=== PATIENT | female | born 1995 | race Two or more races ===

== ENCOUNTER 2024-12-06 17:45 | Emergency (ER) | payer OTHER ==
[~2024-12-06] VITALS: Ht 167.6 cm; Wt 56.7 kg
[2024-12-06 19:26] LABS: PH,URINE 5.5 (5.0-8.0); URINE APPEARANCE Clear; URINE BILIRRUBIN Negative (NEGATIVE); URINE BLOOD NHT; URINE COLOR Dark Yellow; URINE GLUCOSE Negative (NEGATIVE); URINE LEUKOCYTE Negative; URINE NITRATE Negative; URINE PROTEIN Negative (NEGATIVE); URINE UROBILINOGEN 0.2 E.U./dl
[2024-12-06 19:26] LABS: HEMATOCRIT 35.1 % (36.0-45.00); HEMOGLOBIN 12.2 g/dL (12.0-15.00); MEAN CELL VOLUME 82.1 fL (80.00-100.00); MEAN CORPUSCULAR HEMOGLOBIN 28.6 pg (27.00-32.0); MEAN CORPUSCULAR HGB CONC 34.8 g/dl (32.0-36.0); PLATELET COUNT 235 K/uL (150-450); RED BLOOD COUNT 4.27 M/uL (4.00-6.00); RED CELL DISTRIBUTION WIDTH 13.6 % (11.5-14.5)
[2024-12-06 19:29] LABS: URINE BACTERIA 100.3 uL (0.0-1933); URINE EPITHELIAL CELLS 13.9 uL (0.0-38.8); URINE RBC 15.7 uL (0.0-20.8); URINE WBC 16.4 uL (0.0-23.2)
[2024-12-06 19:32] LABS: URINE CAST 0.14 uL (0.0-1.40); URINE KETONE 40 (NEGATIVE)
== END 2024-12-06 20:45 | disposition home or self-care (01) ==
LOC: ER 17:47
PROVIDERS: Emergency Medicine
DX: O20.8 Other hemorrhage in early pregnancy (principal); Z3A.13 13 weeks gestation of pregnancy

== ENCOUNTER 2025-04-27 17:56 | Inpatient (IN) | payer OTHER ==
[~2025-04-27] VITALS: Ht 152.4 cm; Wt 63.5 kg
[2025-04-27 17:14] VITALS: BP 162/100
[~2025-04-27 17:56] MED LIST changes: -IBUPROFEN800 MG PO; -LABETALOL HCL200 MG PO
[2025-04-27] MEDS ORDERED: ACETAMINOPHEN 500 MG GEL..CAP PO ONE (18:07)
[2025-04-27] MEDS ORDERED: LABETALOL HCL 100 MG TABLET PO ONE (18:07)
[2025-04-27] MEDS ORDERED: BETAMETHASONE ACETATE,SOD PHOS 30 MG/5 ML ML ONE (18:08)
[2025-04-27] MEDS ORDERED: MAGNESIUM SULFATE IN WATER 4 GM/100 ML PIGGYBACK IV ONE (18:08)
[2025-04-27] MEDS ORDERED: MAGNESIUM SULFATE IN WATER 0.04 GM/ML IV.SOLN IV ONE (18:09)
[2025-04-27] MEDS ORDERED: MAGNESIUM SULFATE IN WATER 100 ML IV NR (18:45)
[2025-04-27] MEDS ORDERED: MAGNESIUM SULFATE IN WATER 0.04 GM/ML IV.SOLN IV SCH (18:45)
[2025-04-27] MEDS ORDERED: ACETAMINOPHEN 500 MG GEL..CAP PO SCH (18:45)
[2025-04-27] MEDS ORDERED: RINGERS SOLUTION,LACTATED 1,000 ML IV SCH (18:45)
[2025-04-27] MEDS ORDERED: LABETALOL HCL 200 MG TABLET PO SCH (18:45)
[2025-04-27 19:49] LABS: URINE APPEARANCE Cloudy; URINE BILIRRUBIN Small (NEGATIVE); URINE BLOOD Moderate; URINE COLOR Dark Yellow; URINE GLUCOSE Negative (NEGATIVE); URINE KETONE Negative (NEGATIVE); URINE LEUKOCYTE Trace; URINE NITRATE Negative; URINE PROTEIN >=1000 (NEGATIVE); URINE UROBILINOGEN 0.2 E.U./dl
[2025-04-27 19:54] LABS: URINE BACTERIA 3734.4 uL (0.0-1933); URINE EPITHELIAL CELLS 82.1 uL (0.0-38.8); URINE RBC 16.6 uL (0.0-20.8); URINE WBC 111.7 uL (0.0-23.2)
[2025-04-27 20:00] VITALS: BP 160/102
[2025-04-27 20:15] LABS: URINE CAST > 21.83 uL (0.0-1.40)
[2025-04-27 20:18] LABS: FIBRINOGEN 441 mg/dL (187.0-446.0); INR < 0.93; PARTIAL THROMBOPLASTIN TIME 27.3 SECONDS (22.0-34.0)
[2025-04-27 20:26] LABS: ALBUMIN 2.8 gm/dL (3.4-5.0); BILIRUBIN TOTAL 0.5 mg/dL (0.3-1.2); CALCIUM 8.4 mg/dL (8.5-10.1); GFR 64.67; GLOBULINA 3.8 G/DL (2.4-3.5); POTASSIUM 3.97 mEq/L (3.5-5.1); TOTAL PROTEIN 6.6 gm/dL (6.4-8.2)
[2025-04-27] MEDS ORDERED: BETAMETHASONE ACETATE,SOD PHOS 30 MG/5 ML ML IM ONE (20:30)
[2025-04-27 20:50] LABS: BASO % 0.9 % (0.1-1.2); EOS # 0.01 (0.04-0.54); EOS % 0.1 % (0.7-7.0); HEMATOCRIT 37.1 % (34.1-44.9); HEMOGLOBIN 12.8 g/dL (11.2-15.7); LYMPH # 2.45 (1.18-3.74); LYMPH % 30.9 % (19.3-53.1); MONO # 0.33 (0.24-0.82); MONO % 4.2 % (4.7-12.5); NEUT # 5.02 (1.56-6.13); NEUT % 63.3 % (34.0-71.1); RED BLOOD COUNT 4.42 M/uL (3.93-5.22); RED CELL DISTRIBUTION WIDTH 12.8 % (11.6-14.4)
[2025-04-27 20:58] LABS: PLATELET COUNT 97 K/uL (163-369)
[2025-04-27 23:26] VITALS: BP 126/76; BP 170/120; O2SAT 98
[2025-04-27] MEDS ORDERED: hydrALAZINE HCL 20 MG VIAL ONE (23:29)
[2025-04-27] MEDS ORDERED: hydrALAZINE HCL 20 MG VIAL IV ONE (23:30)
[2025-04-27 23:55] VITALS: BP 170/120
[2025-04-28] MEDS ORDERED: CEFAZOLIN SODIUM 1,000 MG VIAL ONE (00:09)
[2025-04-28] MEDS ORDERED: CEFAZOLIN SODIUM 1,000 MG VIAL IV SCH ×2 (00:15→02:00)
[2025-04-28] MEDS ORDERED: ERYTHROMYCIN BASE OPHT 1GM EACH TUBE OP ONE (00:19)
[2025-04-28] MEDS ORDERED: OXYTOCIN 10 UNITS/ML VIAL ONE (00:19)
[2025-04-28] MEDS ORDERED: MORPHINE SULFATE 4 MG/ML CARTRIDGE IV PRN (02:00)
[2025-04-28] MEDS ORDERED: RINGERS SOLUTION,LACTATED 100 ML IV SCH (02:00)
[2025-04-28] MEDS ORDERED: MAGNESIUM SULFATE IN WATER 500 ML IV SCH (02:15)
[2025-04-28] MEDS ORDERED: MORPHINE SULFATE 4 MG/ML VIAL IV ONE ×2 (03:00→03:30)
[2025-04-28 04:36] VITALS: BP 129/82
[2025-04-28 04:54] VITALS: BP 148/94
[2025-04-28] MEDS ORDERED: LABETALOL HCL 200 MG TABLET PO SCH (05:00)
[2025-04-28 06:32] VITALS: BP 140/100; O2SAT 97
[2025-04-28 09:41] LABS: BASO % 0.2 % (0.1-1.2); HEMATOCRIT 33.1 % (34.1-44.9); HEMOGLOBIN 11.3 g/dL (11.2-15.7); LYMPH # 1.95 (1.18-3.74); LYMPH % 12.4 % (19.3-53.1); MONO # 0.91 (0.24-0.82); MONO % 5.8 % (4.7-12.5); NEUT # 12.44 (1.56-6.13); NEUT % 79.4 % (34.0-71.1); RED CELL DISTRIBUTION WIDTH 13.2 % (11.6-14.4)
[2025-04-28 09:46] LABS: PLATELET COUNT 120 K/uL (163-369)
[2025-04-28 10:39] VITALS: BP 153/95
[2025-04-28] MEDS ORDERED: OxyCODONE HCL 5 MG TABLET (ROXICODONE) PO PRN (14:00)
[2025-04-28 16:00] VITALS: BP 140/80
[2025-04-28] MEDS ORDERED: BETAMETHASONE ACETATE,SOD PHOS 30 MG/5 ML ML IM ONE (18:30)
[2025-04-29 01:27] VITALS: BP 134/79
[2025-04-29 08:00] VITALS: BP 150/85
[2025-04-29 16:38] VITALS: BP 140/70
[2025-04-29] MEDS ORDERED: LABETALOL HCL 200 MG TABLET PO SCH (17:00)
[2025-04-30 01:34] VITALS: BP 139/85
[2025-04-30] MEDS ORDERED: LABETALOL HCL200 MG PO ×2 (06:44)
[2025-04-30] MEDS ORDERED: IBUPROFEN800 MG PO ×2 (06:44)
[2025-04-30 08:00] VITALS: BP 145/85
== END 2025-04-30 10:35 | disposition home or self-care (01) | DRG 788 ==
LOC: OB/GYN 17:56 → LDR 17:56 → OB/GYN 04-28 14:40
PROVIDERS: ADMIT Specialist; ATTEND Specialist
PROC: 4A1HXCZ Monitoring of Products of Conception, Cardiac Rate, External Approach (ICD-10-PCS; 2025-04-27)
PROC: BY4FZZZ Ultrasonography of Third Trimester, Single Fetus (ICD-10-PCS; 2025-04-27)
PROC: 10D00Z1 Extraction of Products of Conception, Low, Open Approach (ICD-10-PCS; principal; 2025-04-28 07:00)
DX: O14.14 Severe pre-eclampsia complicating childbirth (principal); O60.14X0 Preterm labor third trimester with preterm delivery third trimester, not applicable or unspecified; Z3A.33 33 weeks gestation of pregnancy; Z37.0 Single live birth

== ENCOUNTER → 2025-04-27 | Emergency (ER) | payer OTHER ==
[~2025-04-27] VITALS: Ht 167.6 cm; Wt 65.8 kg
[~2025-04-27] MED LIST: IBUPROFEN800 MG PO; LABETALOL HCL200 MG PO; PRENATA CHEWAB1 EACH PO
== END | disposition home or self-care (01) ==
LOC: ER 13:01
DX: O14.03 Mild to moderate pre-eclampsia, third trimester (principal); Z3A.33 33 weeks gestation of pregnancy; R51.9 Headache, unspecified; R11.10 Vomiting, unspecified

== ENCOUNTER 2025-05-12 18:12 | Emergency (ER) | payer OTHER ==
[~2025-05-12] VITALS: Ht 167.6 cm; Wt 63.5 kg
[~2025-05-12 18:12] MED LIST changes: +IBUPROFEN800 MG PO; +LABETALOL HCL200 MG PO
[2025-05-12 19:53] LABS: BASO % 1.2 % (0.1-1.2); EOS # 0.06 (0.04-0.54); EOS % 1.2 % (0.7-7.0); HEMATOCRIT 34.3 % (34.1-44.9); HEMOGLOBIN 11.2 g/dL (11.2-15.7); LYMPH # 1.97 (1.18-3.74); LYMPH % 38.9 % (19.3-53.1); MEAN CORPUSCULAR HEMOGLOBIN 28.5 pg (25.6-32.2); MONO # 0.29 (0.24-0.82); MONO % 5.7 % (4.7-12.5); NEUT # 2.67 (1.56-6.13); NEUT % 52.8 % (34.0-71.1); PLATELET COUNT 348 K/uL (163-369); RED BLOOD COUNT 3.93 M/uL (3.93-5.22); RED CELL DISTRIBUTION WIDTH 12.8 % (11.6-14.4)
[2025-05-12 20:25] LABS: ALBUMIN 3.4 gm/dL (3.4-5.0); BILIRUBIN TOTAL 0.32 mg/dL (0.3-1.2); CREATININE SERUM 0.83 mg/dL (0.55-1.02); GFR 80.18; GLOBULINA 4.1 G/DL (2.4-3.5); POTASSIUM 3.88 mEq/L (3.5-5.1); TOTAL PROTEIN 7.5 gm/dL (6.4-8.2)
[2025-05-12 20:36] LABS: URINE APPEARANCE Clear; URINE BILIRRUBIN Negative (NEGATIVE); URINE BLOOD Negative; URINE COLOR Yellow; URINE GLUCOSE Negative (NEGATIVE); URINE KETONE Negative (NEGATIVE); URINE LEUKOCYTE Negative; URINE NITRATE Negative; URINE PROTEIN 30 (NEGATIVE); URINE UROBILINOGEN 0.2 E.U./dl
[2025-05-12 20:40] LABS: URINE BACTERIA 171.3 uL (0.0-1933); URINE EPITHELIAL CELLS 14.5 uL (0.0-38.8); URINE RBC 8.8 uL (0.0-20.8); URINE WBC 13.7 uL (0.0-23.2)
[2025-05-12 20:51] LABS: URINE CAST 0.73 uL (0.0-1.40)
[2025-05-12 20:52] LABS: URINE MUCUS SCANT
== END 2025-05-12 23:37 | disposition home or self-care (01) ==
LOC: ER 18:19
PROVIDERS: General Practice
DX: O90.89 Other complications of the puerperium, not elsewhere classified (principal); H53.8 Other visual disturbances; I10 Essential (primary) hypertension